=== PATIENT | female | born 2000 | race Caucasian/White ===

== ENCOUNTER 2018-12-01 10:43 | Emergency (ER) | payer MEDICARE, MEDICAID ==
--- NOTE | 2018-12-01 11:37 | RAD ---
Exam: XR Knee Lt 4 View STANDARD HISTORY: Left knee locking when standing up. Pain left anterior knee. COMPARISON: None FINDINGS: No acute fracture, dislocation, or other acute osseous abnormality is identified. IMPRESSION: No acute osseous abnormality is identified.
--- NOTE | 2018-12-01 11:45 | RAD ---
LEFT ANKLE 3 VIEWS: HISTORY: Left ankle pain. FINDINGS/IMPRESSION: The ankle mortise is maintained. No fracture, dislocation, or bony destruction is seen. POS: OFF
== END 2018-12-01 11:46 | disposition home or self-care (01) ==
LOC: NAV ERS 10:43
DX: S93.402A Sprain of unspecified ligament of left ankle, initial encounter (principal); M25.562 Pain in left knee; F31.9 Bipolar disorder, unspecified; F41.9 Anxiety disorder, unspecified; F32.9 Major depressive disorder, single episode, unspecified; F43.10 Post-traumatic stress disorder, unspecified; W18.30XA Fall on same level, unspecified, initial encounter; Z79.899 Other long term (current) drug therapy